=== PATIENT | male | born 1990 | race Two or more races ===

== ENCOUNTER 2022-08-15 20:37 | Emergency (ER) | payer OTHER ==
[~2022-08-15] VITALS: Ht 172.7 cm; Wt 42.4 kg
[2022-08-15] MEDS ORDERED: levETIRAcetam 250 MG TABLET PO ONE (21:00)
[2022-08-15] MEDS ORDERED: LEVO25TA9 PO (21:02)
[2022-08-15] MEDS ORDERED: LEVE500T83 PO (21:02)
[2022-08-15] MEDS ORDERED: FAMO10TA41 PO (21:02)
[2022-08-15] MEDS ORDERED: levETIRAcetam 250 MG TABLET ONE (21:03)
--- NOTE | 2022-08-15 22:10 | NUR ---
Patient discharged to home in stable condition. Written and verbal after care instructions given. Patient's mother verbalizes understanding of instructions. Stressed follow up or return to ER for worsening s/s. Patient is accompanied by his mother
[2022-08-15 22:18] VITALS: BP 110/54
== END 2022-08-15 22:18 | disposition home or self-care (01) ==
LOC: ER 20:37
DX: G40.909 Epilepsy, unspecified, not intractable, without status epilepticus (principal); F79 Unspecified intellectual disabilities; E03.9 Hypothyroidism, unspecified; Z79.899 Other long term (current) drug therapy
CPT/HCPCS: A4663